=== PATIENT | female | born 1980 | race Caucasian/White ===

== ENCOUNTER 2016-11-14 20:09 | Inpatient (IN) | payer MEDICARE, MEDICAID ==
[~2016-11-14] VITALS: Ht 160 cm; Wt 90.7 kg
[~2016-11-14 20:09] MED LIST: ACYC400T2 PO; ALBU8.5H2 INHALATION; ALPR0.5T PO; BUSP15TA3 PO; BUTA1CAP39 PO; CRAN1CAP2 PO; DESO15CR25 TOP; ESOM20CA28 PO; KEN25CR EXT; KTC2C15 TP; LACT1TAB21 PO; MAGN250T29 PO; MECL-114 PO; METH-442 PO; METH20TA33 PO; SOD28CRE TP; excedrin migraine; vitamin d
[2016-11-14] MEDS ORDERED: diphenhydrAMINE 50 mg Capsule PO ONE (21:50)
--- NOTE | 2016-11-14 21:59 | PCM.ANEPRE ---
Anesthesia Pre-Op Review Reason for Review: request of supervisor front Anesthesia Recommendations: Proceed with Procedure Additional Comments 36 yo presents in early labor. Patient states she has some mild form of narcolepsy, for which she was on an amphetamine class stimulant up until pregancy. Patient has hypertension on labetalol, and depression on wellbutrin and buspirinone. Patient is extremely needle phobic, and states she has passed out frequently with blood draws. No prior surgical hx. Upon discussion with patient and family, it is obvious patient has a high degree of anxiety and would not readily tolerate IV access. Order has been written for patient to receive PO midazolam prior to IV start, after which time medications can be administered intravenously. Epidural was also discussed with patient, and she seemed agreeable to procedure. Chart Reviewed by: Carter Maddox MD Nov 14, 2016 21:58
[2016-11-14] MEDS ORDERED: Midazolam 2 mg/mL 5 mL Syrup PO ONE (22:45)
[2016-11-15] MEDS ORDERED: Sodium Chloride LOK Flush 10 mL Syringe IVFLUSH PRN (00:10)
[2016-11-15] MEDS ORDERED: Ondansetron 2 mg/mL 2 mL Inj IVPUSH PRN ×2 (00:10→01:05)
[2016-11-15] MEDS ORDERED: Carboprost 250 mCg/mL Inj IM PRN ×2 (00:10→14:55)
[2016-11-15] MEDS ORDERED: Methylergonovine 0.2 mg/mL Inj IM PRN ×2 (00:10→14:55)
[2016-11-15] MEDS ORDERED: Oxytocin 10 Unit/mL Inj IM PRN ×2 (00:10→14:55)
[2016-11-15] MEDS ORDERED: Hemorrhage Kit, Post Partum XX ONE ×2 (00:10→14:55)
[2016-11-15] MEDS: Lactated Ringer's 1,000 ML IV PRN ×2 (00:17→01:02)
[2016-11-15 00:19] LABS: Mean Corpuscular Volume 96.4 fL (81-100)
[2016-11-15] MEDS ORDERED: fentaNYL 2 mCg/mL-Bupivicaine 0.125% 100 mL Premix EPIDURAL ONE (00:20)
[2016-11-15] MEDS ORDERED: Lactated Ringer's 500 ML IV ONE (01:04)
[2016-11-15] MEDS ORDERED: EPHEDrine Sulfate 50 mg/mL Inj IVPUSH PRN (01:05)
[2016-11-15] MEDS ORDERED: Atropine 1 mg/10 mL (Code) Syringe IVPUSH PRN (01:05)
[2016-11-15] MEDS ORDERED: fentaNYL 2 mCg/mL-Bupiv 0.125% 100 ML EPIDURAL SCH (01:05)
--- NOTE | 2016-11-15 01:05 | PCM.HPANE ---
Patient Data Date of Service: Nov 15, 2016 (2300) Surgeon Admitting Provider:Nohelia Pike MD Attending Provider:Sandor Bridges MD Primary Care Physician:Idris Aburto MD Other Provider:Abdias Casey Anesthesia Reason for Visit Term Labor Check TERM LABOR CHECK Ht/WT & BMI Body Mass Index Allergies Coded Allergies: amoxicillin (Verified Allergy, Severe, 01/15/16) FAIITNG, LOW BP, CHEST PAIN clindamycin (Verified Allergy, Severe, Anaphylaxis, 01/15/16) THROAT SWELLING ciprofloxacin (Verified Allergy, Intermediate, Nausea,Vomiting, 01/15/16) N/V, DIZZINESS, TWITCHING, PALPITATIONS, FLUSHING metronidazole (Verified Allergy, Unknown, 01/15/16) fluoxetine (Verified Adverse Reaction, Intermediate, 01/15/16) LIGHT HEADEDNESS Past Anesthesia History Anesthesia History: Denies:: Abnormal Airway, Anesthesia Reactions (no prior surgery), Difficult Intubation, Fam Anesthesia Reaction, Malignant Hyperthermia Diabetes History Hx Diabetes?: No MRSA MRSA: Yes (cannot recall specifics ) Medications Reported Medications Alprazolam (Xanax)0.5 Mg Tablet0.5-1 Mg PO TID PRN For Anxiety Ref 0 01/30/16 [vitamin d] No Conflict CheckUnknown Dose DAILY 01/30/16 Triamcinolone Acet (Triamcinolone Acetonide Cream)1 Applic/0.25 Gm Cr1 Applic EXT BID #60 GM Ref 0 01/30/16 Esomeprazole Magnesium (Nexium)20 Mg Capsule.dr20 Mg PO DAILY Ref 0 01/30/16 Methylphenidate 20 Mg Nlskkd99 Mg PO QAM Ref 0 01/30/16 Meclizine (Bonine)25 Mg Tab.chew25 Mg PO PRN vertigo 01/30/16 Magnesium Oxide (Magnesium)250 Mg Oamxxe228 Mg PO DAILY 01/30/16 Ketoconazole 15 Gm Cream..g.15 Gm TP BID 01/30/16 Butalbital/Acetamin/Caff 50-300-40 mg (Fioricet 50-300-40 mg)1 Each Capsule1-2 Capsule PO Q4H PRN migraines Ref 0 NTE 6 caps/24 hrs 01/30/16 [excedrin migraine] No Conflict Nloel902 Mg PRN migraines 01/30/16 Methamphetamine HCl (Desoxyn)5 Mg Tablet5-10 Mg PO 1-2x daily 01/30/16 Desonide (Desonide Cream)15 Gm Cream..g.1 Applic TOP BID #1 TUBE Ref 0 01/30/16 Cranberry Conc/Ascorbic Acid (Cranberry 6,000 mg Softgel)1 Each Capsule1 Each PO DAILY 01/30/16 Buspirone 15 Mg Ycqdgv03 Mg PO BID Ref 0 01/30/16 Sod Lactate/Amm Lact/Pot Lact (Amlactin Ultra Body Cream)28 Gm Cream..g.28 Gm TP BID 01/30/16 Albuterol HFA (Proair HFA)8.5 Gm Hfa.aer.ad2 Puffs INHALATION Q4H PRN For Shortness of Breath #1 INHALER 01/30/16 Acyclovir 400 Mg Wyxaqa156 Mg PO TID PRN outbreak Ref 0 for 5 day cycle 01/30/16 Lactobacillus Acidophilus/Fos (Acidophilus Probiotic Tablet)500 Million Cell-50 Mg Tablet1 Each PO DAILY 01/30/16 History History of ENT Problems?: Yes HEENT History: Positive for:: Sinus Problem (sinus frequently) Denies:: Abnormal Airway Cataracts Difficult Intubation Dysphagia Hearing Problem TMJ Hx of Heart Problems?: Yes Cardiovascular History: Positive for:: Irregular Heartbeat (palpitations with anxiety, syncopal episodes) Denies:: AICD Abdominal Aortic Aneurism Atrial Fibrillation Cardiac Surgery Chest Pain Congestive Heart Failure Edema Heart Murmur Hypertension Pacemaker Hx of Respiratory Problem?: Yes Respiratory History: Positive for:: Asthma (exercise induced) Pneumonia ("thinks so") Denies:: Oxygen Administration Tuberculosis Use of C-PAP Machine Hx Neurologic Problems?: Yes Neurological History: Positive for:: Dizziness (vertigo- syncopal episodes easily in medical situations) Headaches Denies:: CVA Dementia Multiple Sclerosis Parkinson's Disease Seizures Hx of GI Problems?: No Gastrointestinal History: Denies:: Cirrhosis Diverticulitis Gastroesphageal Reflux Gastrointestinal Bleeding Heartburn Hepatitis Hiatal Hernia Rectal Bleeding Hx of Problems?: No Genitourinary History: Positive for:: Urinary Tract Infection Denies:: Kidney Stones HX of Peritoneal Dialysis: No Female Hx: Positive for:: Currently (missed current admission problem) Denies:: Problems with Breasts? Hx Musculoskeletal Problems?: No Musculoskeletal History: Denies:: Back Injury Degenerative Joint Joint Replacement Musculoskeletal Trauma Systemic Lupus Hx of Psycho/Social Problems?: Yes Psycho Social History: Positive for:: Anxiety Hx Depression Hx Surgeries?: No Other History: Denies:: Cancer Thyroid Disease History Blood Transfusions: Denies:: Blood Transfusions Hx Diabetes: No Hx Alcohol Use: YesHx Substance Use: No Smoking Status: Current Every Day Smoker Have You Smoked inLast 12 mo: Yes Stop/Bang Risk Assessment Category Category 1A: Patient has history of documented sleep apnea, and HAS NOT received any narcotic, sedative or anesthesia administration during this stay. Category 1B: Patient has history of documented sleep apnea, and HAS received any narcotic , sedative or anesthesia administration during this stay Category 2: Patient has SUSPECTED Obstructive Sleep Apnea, and HAS received any narcotic , sedative or anesthesia administration during this stay. Category 3: Patient has SUSPECTED Obstructive Sleep Apnea and HAS NOT received narcotic, sedative or anesthesia administration during this stay. Category 4: Outpatient in Procedural Areas with known sleep apnea or who screen positive for High Risk via the STOP/BANG questionnaire. Exam Exam General Appearance: Alert, Oriented X3, Cooperative, No Acute Distress HEENT/AIRWAY: MP 2 Lungs: Clear to Auscultation Heart: Exam Unremarkable Meds/Labs/Diagnostics Admission Meds Current Medications Midazolam HCl (Versed Syrup) 10 mg OT ONCE PO Last administered on 11/14/16t 23:11; Start 11/14/16 at 22:45; Stop 11/14/16 at 22:46; Status DC Labs Test 11/14/16 22:47 11/14/16 23:45 Urine Opiates Screen Negative Urine Methadone Screen Negative Urine Barbiturates Screen Negative Urine Amphetamines Screen Positive Urine Benzodiazepines Screen Negative Urine Cocaine Metabolite Screen Negative Urine Cannabinoids Screen Negative White Blood Count 21.6th/mm3 (3.8-10.1) Red Blood Count 3.84mil/mm3 (3.90-5.20) Hemoglobin 12.3g/dL (12.0-15.6) Hematocrit 37.0% (35.0-46.0) Mean Corpuscular Volume 96.4fL (81-100) Mean Corpuscular Hemoglobin 32.0pg (27.0-35.0) Mean Corpuscular Hemoglobin Concent 33.2% (32.0-37.0) Red Cell Distribution Width 13.6% (12.3-15.4) Platelet Count 204bil/L (150-400) Hold Purple Top Tube Received (Received) Plan Impression Patient chart reviewed, patient interviewed and anesthestic plan with risks, benefits, and alternatives discussed, and informed consent obtained. ASA Physical Status: ASA3 Severe Disease (severe anxiety) Anesthetic Plan: Epidural Bene/Risks/Altern/Consents: Yes HP Complete Prior to Induction: Yes Carter Nunes MD Nov 15, 2016 01:04
[2016-11-15] MEDS ORDERED: EPHEDrine/NS 5 mg/mL 5 mL Syringe ONE (01:26)
[2016-11-15] MEDS ORDERED: Acetaminophen IV 1,000 MG in IV Premix 1 EACH IV PRN (02:20)
--- NOTE | 2016-11-15 06:26 | HP ---
[address] [address] HISTORY AND PHYSICAL PATIENT: MARIO TEJEDA : 1980 MR#: [id number] ADMIT: 11/14/2016 JOB ID: [id number] ADMISSION DIAGNOSIS: Spontaneous rupture of membranes at term. HISTORY OF PRESENT ILLNESS: The patient is a 36-year-old, 2, para 0-0-1-0, at 38 weeks and 2 days gestational age by LMP, confirmed by 9 week ultrasound. Started to have leakage of fluid while she was in triage for labor check, and ROM+ test was positive. Admitted for spontaneous rupture of membranes. Had her complicated with the followin. 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 She has to take amphetamines to stay awake. The patient and partner denied any amphetamine use in the last few months, but UDS was positive for amphetamine on admission. 2. History of herpes simplex virus infection. She is not on prophylaxis. The patient mentioned she had an active lesion 20 years ago and got treated, and she takes prophylaxis whenever her partner has cold sores. Sterile speculum exam on admission showed no lesions on the perineum or on the vagina and cervix. 3. Anxiety disorder with panic attacks. She is on Wellbutrin and risperidone. 4. Chronic hypertension. On labetalol 100 mg q.12 h., with controlled blood pressures. 5. Suspected LGA. Last ultrasound on November 10, 2016, showed baby at 97th percentile with estimated weight of 3948 g. 6. Marginal placental cord insertion. Ultrasound on November 10 showed anterior placenta. Nothing was mentioned about the cord insertion. 7. Cardiogenic syncope, per patient. She mentioned that she gets syncope with needle sticks or eyedrops, or multiple stimulants. 8. Cigarette smoking. PAST MEDICAL HISTORY: See the list above. PAST SURGICAL HISTORY: Colposcopy for abnormal Pap smear. This was her only surgery, per patient. PAST GYNECOLOGIC HISTORY: History of HSV and history of normal Pap smears. Last Pap was normal, per patient. MEDICATIONS: Wellbutrin, risperidone, vitamins, labetalol. OBSTETRICAL HISTORY: Prior spontaneous , and the current . ALLERGIES: AMOXICILLIN, CIPROFLOXACIN, , METRONIDAZOLE, FLUOXETINE, CLINDAMYCIN. SOCIAL HISTORY: Used amphetamines for hypersomnia. Cigarette smoking. LABORATORIES: A-positive. Antibody negative, rubella immune, varicella immune, serology nonreactive, hepatitis B surface antigen negative. HIV nonreactive. Urine cultures negative. GC and chlamydia cultures negative. GBS culture is negative. UDS positive for amphetamines on admission. PHYSICAL EXAMINATION: The patient is alert, oriented x3. Vital signs are 117/72 for blood pressure. Respirations are 20, pulse is 94. Heart is regular rate and rhythm. Positive S1, S2. Lungs: Clear to auscultation bilaterally. Abdomen: Gravid uterus. Lower extremities: No calf tenderness appreciated bilaterally. Sterile speculum exam showed no herpetic lesions on the cervix or the vaginal hillman. Careful inspection of the vulva revealed no lesions on the perineum. Cervical exam is 4 cm dilated, cervix 80% effaced, -3 station, vertex presentation with bulging membranes. heart tracing is showing baseline of 130 beats per minute, positive accelerations, no decelerations, moderate variability, category 1 heart tracing. ASSESSMENT AND PLAN: The patient is a 36-year-old, 2, para 0-0-1-0, at 38 weeks and 2 days gestational age by last menstrual period, confirmed by 9 week ultrasound, admitted for spontaneous rupture of membranes. Discussed the labor with the patient ; she opted for expectant management. She would prefer Dr. Aburto to deliver her. 2. Group B Strep cultures negative. 3. Discussed intrapartum analgesia. Would like epidural for pain control. Anesthesia notified. 4. Category 1 heart tracing. 5- Patient was given Versed by anesthesiologist to tolerate IV access, as she has history of cardiogenic syncope with needles. The patient agreed. CARTER
[2016-11-15] MEDS ORDERED: Sodium Chloride LOK Flush 10 mL Syringe IVFLUSH SCH (08:30)
[2016-11-15] MEDS: Lactated Ringer's 1,000 ML IV SCH ×3 (08:36→12:01)
[2016-11-15] MEDS: Oxytocin 30 Units/500 mL LR 30 UNITS in IV Premix 1 EACH IV PRN ×2 (08:36→16:55)
[2016-11-15] MEDS ORDERED: Lactated Ringer's 1,000 ML IV SCH (14:53)
[2016-11-15] MEDS ORDERED: Benzocaine (Dermoplast) 20% 60 Gm Spray TOPICAL PRN (14:55)
[2016-11-15] MEDS ORDERED: oxyCODONE-Acetamin 5-325 mg Tablet PO PRN (14:55)
[2016-11-15] MEDS ORDERED: Witch Hazel-Glycerin Pads TOPICAL PRN (14:55)
[2016-11-15] MEDS ORDERED: LANOlin HPA 7 Gm Ointment TOPICAL PRN (14:55)
[2016-11-15] MEDS ORDERED: Oxytocin 30 Units/500 mL LR 30 UNITS in IV Premix 1 EACH IV PRN (14:55)
[2016-11-15] MEDS ORDERED: GENTAMICIN IV ONE (15:05)
[2016-11-15] MEDS ORDERED: SODIUM CHLORIDE 0.9% IV ONE (15:05)
[2016-11-15] MEDS ORDERED: metroNIDAZOLE Inj 500 MG in IV Premix 1 EACH IV ONE (15:05)
[2016-11-15] MEDS ORDERED: diphenhydrAMINE 50 mg Capsule PO PRN (17:25)
[2016-11-15] MEDS ORDERED: ALPRAZolam 0.5 mg Tablet PO ONE (17:25)
--- NOTE | 2016-11-15 17:35 | NUR ---
Family Assessment Denise Danielle delivered baby jackelyn Danielle on 11/15/15. FOB is listed as Omar Alarcon. SW was consulted due to amphetamine use during and [facility]. ROD states that she has a neurologic disorder that is known as sleeping beauty syndrome - an extreme form of narcolepsy which keeps her sleeping much of the day or night without medications. She states that she has been seeing neurologist at and was prescribed amphetamines to help her stay awake during the day. records show that her YOUTH CARE PROFESSIONAL had her stop taking her amphetamines during . Pt admits to buying/using amphetamines from friends during her . Pt's Significant other is Omar - Omar was very upset with RN last night when RN identified that a UDS and Cord blood would be tested for drug use. He stated to RN that if drug testing was brought up again, he would follow the RN to the parking lot and he would use a gun. RN reported to Security and Risk and DESIREE - Omar was asked to leave the hospital for threatening a staff member and will not be allowed to return. PUMP HOUSE TECHNICIAN met with pt alone to explore home situation. Current living situation: Parents live in [place]. This is their first child. ROD is on disability for her narcolepsy and anxiety. FRANKIE is her KAR caregiver - paid by [facility] to be a chore provider - about 48 hours a month. Substance Abuse: ROD denies any drug or alcohol use except what is prescribed by her doctor - She admits to taking benzos and amphetamines "infrequently" during her when her sleep and anxiety became overwhelming. Mental Health: Pt states that she has struggled with severe anxiety since she was a teenager. She denies any inpt psychiatric hospitalizations. She reports that she is open with [facility] for counseling and medication management. She was very anxious during delivery and with PUMP HOUSE TECHNICIAN interview. She states that she just wants to go home - but was able to be redirected as she is not medically stable for d/c today. She is aware of PPD - Denies any current depression but will use her MD and Counselor if depression is an issue in the future. Source of Income: Pt is on Medical Disability. She is open with [facility] for assistance. DV: ROD denies any hx of DV issues. She states she has a very supportive relationship with Omar and that he has never hurt her. She states she is safe to return home with Omar. Supports: MOB has family and friends who are willing to provide support. Maternal Grandfather is at the hospital and is willing to help. Assessment: who has known unprescribed amphetamine and benzodiazepine use during her - CPS referral started. FOB with anger/threatening behavior to hospital staff who has been trespassed off of the premises and will not be allowed to return to visit. Yancy from Risk Management is involved. Security is aware. Plan: Follow up with CPS for disposition of baby after CPS interview. KAITLYN Olivas
--- NOTE | 2016-11-15 18:09 | NUR ---
WELT TRIMMING MACHINE OPERATOR filed CPS report with Wisam Keyes. ANDRZEJ OlivasSW
--- NOTE | 2016-11-15 21:10 | PROG NOTE ---
[address] [address] PROGRESS NOTE PATIENT: MARIO TEJEDA : 1980 MR#: [id number] ADMIT: 11/14/2016 JOB ID: [id number] DATE: 11/15/2016 DICTATION TIME: 4:46. This is a patient who delivered by Dr. Daley this afternoon. Patient request Dr Daley present for her for morning round and delivery because she claimed she only trust him for the delivery. She had hemorrhage immediate after delivery which was about [address] Daley gave me a sign out after delivery that the patient was stable. The bleeding has stopped after getting Pitocin, Cytotec and Hemabate. I was called by the floor that the in the afternoon that patient has bleeding again. Patient and her family refused to have a Herrera catheter placed, which is needed control her bleeding. After I got the phone call, I discussed with Dr. Daley of this patient. Dr Daley was in the middle of an offic eprocedure. I walked to the floor immediately. When I arrived at the room,patient had her Herrera catheter in already and the urine was draining and itdrained about 700 cc. Her vital signs were stable at that time. Her blood pressure is in normalrange. Her pulse was about 80s to 90s. Her uterus was firm at this time. There was no active bleeding from vaginal noticed at this time. During evaluation, Dr. Daley also arrived. ASSESSMENT AND PLAN: This is a 36-year-old female, para 1, just delivered with hemorrhage. Vaginal bleeding controlled. Stable condition. Chorioamionitis, but no fever after delivery. On antibiotics. Patient has history of anxiety, not cooperating well, during and delivery. But calm at this time. She could listen to explaination and understood well. PLAN: 1. At this time, we will continue with antibiotics for chorio. 2. Give another bag of Pitocin to help for the contraction of the uterus. 3. At this time, the vitals stable. There is no continuous heavy bleeding. My estimation of the whole blood loss is less than 1000 mL, although I do not know the exact amount of bleeding. Patient has history of anxiety but she is not on any anti-anxiety medication during . At this time, I will not put her anti-anxiety medication. Will order CBC in the morning unless there is more bleeding. MTDD
--- NOTE | 2016-11-16 01:31 | OP ---
[address] [address] OPERATIVE REPORT PATIENT: MARIO TEJEDA : 1980 MR#: [id number] ADMIT: 11/14/2016 JOB ID: [id number] DATE OF SURGERY: 11/15/2016 SURGEON: PREOPERATIVE DIAGNOSIS(ES): 1. A 36-year-old, 1, para 0, at 38 weeks and two days in active labor, suspected macrosomia. 2. History of -induced hypertension. POSTOPERATIVE DIAGNOSIS(ES): 1. A 36-year-old, 1, para 1, status post spontaneous vaginal delivery at term. 2. hemorrhage. 3. endometritis. 4. History of -induced hypertension. DELIVERY NOTE: The patient is a 36-year-old, 1, para 1 now, who came to labor and delivery in the evening of November 14, 2016, complaining of regular contractions. She has been destiney every 3-4 minutes. On exam she was 4 cm dilated, 80% effaced, -2 station. The patient was admitted for delivery. She received an epidural. She was examined at 5:30 a.m. and was 6 cm dilated, 100% effaced, 0 station. Following exam at 8 a.m. showed cervical dilation 8-9 cm, 100% effacement, 0 station. Mild meconium. Braided Rug Maker was notified. Intrauterine pressure catheter was placed and augmentation with Pitocin was started. Patient stated that she had spontaneous rupture of membranes at admission and initial testing was positive, however, when I ruptured membranes there was a forebag filled with fluid with meconium. She progressed to full dilation at 12:07 p.m., pushed for one hour, progressed to station +2, was bearing down for one hour and started pushing again. heart rate tracing was reactive, category 1. At the end of second stage of labor there was intermittent increase in heart rate to 170 beats per minute. Variability was good. No decelerations. The patient underwent spontaneous vaginal delivery at 2:28 p.m., delivered male with Apgars 7 at one minute and 7 at five minutes, weight 3862 g. Braided Rug Maker was present at delivery. Immediately upon delivery the cord was clamped and cut and the infant was handed off to the waiting training mgr. The cord blood was sent. At that time, measured temperature was 37.9. The patient had moderate hemorrhage that was controlled with injection of 250 mg of Hemabate IM and placement of 800 mcg of Cytotec rectally. With uterine massage bleeding subsided. She had second-degree midline vaginal laceration that was repaired with 3-0 Vicryl. The placenta was delivered at 2:36 p.m. and was found to be intact with three-vessel cord. Estimated blood loss was 600 mL. At the end of delivery, this patient's temperature was rechecked, it was 38.6, and antibiotics were started for endometritis, including gentamicin and clindamycin.
--- NOTE | 2016-11-16 10:30 | NUR ---
CPS came into patient's room. Pt. told CPS to leave and stated, "I don't have to talk to them. It is none of their business. I am going home." Pt. got dressed and packed her things. Nurse encouraged her to stay and asked her not to leave her baby. "I am taking the baby with me. I can give it oxygen at home". Pt's friend, Charles, able to talk to patient and convince her to stay. Pt. encouraged to go see baby. CPS talked to pt's mother and will return at another time. Pt. taken to nursery to see her baby. Nurse explained reason for CPS's visit due to positive amphetamines on urine drug screen. Pt states she has proof that the welbutrin and labetolol she was taking in will show up in a drugs screen as amphetamines. She denies taking Desoxyn 2 days ago as documented in admission record. Nurse explained another reason for CPS visit was her her sleep disorder, and CPS needed to evaluate this for baby's safety. Pt. reminded that she told the nurse yesterday that sometimes she is hard to wake up, but that her significant other,Omar, will be with her to help her take care of the baby. Pt. reminded that Omar had threated a nurse, that he will meet that nurse out in the parking lot one night, and that this added another concern to CPS. Also explained to pt, CPS was very concerned that she wants to take her baby home while still requiring oxygen. Pt. calmer now and states she will stay and not take the baby.
--- NOTE | 2016-11-16 10:56 | NUR ---
Social Work Note: CPS D/A: ASHLEY met with Yady Balderas from CPS who reported that the primary CPS worker assigned to Pt's case is Jenelle Stearns. Yady requested that Pt's records be faxed to her at [phone] for review prior to an FTDM that would be scheduled. P: ASHLEY faxed the requested clinical information to Yady Balderas. ASHLEY Benites, AAC
--- NOTE | 2016-11-16 11:35 | NUR ---
CPS returned and presented Child Custody Transfer papers to the patient. Pt. very upset. Staff attempted to calm her and encourage her to stay, also to take her saline lock out. However, patient left hospital AMA at 1135.
[2016-11-16] MEDS ORDERED: Bupivacaine-MPF 0.25% 30 mL Inj ONE (11:42)
[2016-11-16] MEDS ORDERED: Carboprost 250 mCg/mL Inj IM ONE (11:42)
--- NOTE | 2016-11-16 12:21 | PROG NOTE ---
[address] [address] PROGRESS NOTE PATIENT: MARIO TEJEDA : 1980 MR#: [id number] ADMIT: 11/14/2016 JOB ID: [id number] DATE: 11/16/2016 PROGRESS NOTE: This is a 36-year-old female. She is para 1 , PPD1 after vaginal delivery with hemorrhage. For detailed history, see the admission note and yesterday's progress note. This morning, I saw the patient. She is doing well. She does not have dizziness, lightheaded. She does not have severe abdominal pain. She does not have other complaints. She still has her Herrera catheter in and has appropriate urine output. PHYSICAL EXAMINATION: Cardiac: No murmur. Pulmonary: Clear. Abdomen is soft. Uterus: Uterine fundal height one finger below her umbilicus with slight tender. Extremities nontender. lochia, moderate. ASSESSMENT AND PLAN: This is a 36-year-old female, para 1, day one after a normal vaginal delivery and hemorrhage, estimated 1000ml. No concerning bleeding overnight. 1. She had mild tachycardia. Her heart rate between 90-110. Her blood pressure in normal range, but she does have normal urine output. Discussed with patient that we would like to have an CBC drawn to evaluate her H and H. she understands the reason very well. She declined it. She claimed that the only way for her to to get blood drawn is to let her stay in the room and hold her hand. We could not let her come in for the reason that he threatened staff yesterday. 2. We also want to get a CBC drawn to watch her white count which was 21 on at admission, and she was diagnosed with chorioamnionitis and got one dose of antibiotics after delivery. She has been afebrile. The tenderness is not severe on her uterus, but the white count will be very important for us to have us evaluate her infection status. Patient understands and still declined for this test for this reason. 3. Because the patient declined the test at this time, what I coulddo is to monitor her vaginal bleeding by pad count and monitor her vitals and signs of severe anemia and will monitor her temperature and uterine tenderness to decide whether her infection is becoming better. I will need her stay in hospital for one more day for observation. 4. Because of patient is positive of urine amphetamines, will need continue working with the social media marketing specialist. Her nurse and resident were both in the room when I talk with her and examined her . We all believe she understood well. She was talking with us in calm mood. CARTER
--- NOTE | 2016-11-16 12:36 | PCM.PNOBPP ---
Subjective Date of Service Nov 16, 2016 Post : Spontaneous Vaginal Delivery Visit History Per Dr. Pike's Admit History. The patient is a 36-year-old, 2, para 0-0-1-0, at 38 weeks and 2 days gestational age by LMP, confirmed by 9 week ultrasound. Started to have leakage of fluid while she was in triage for labor check, test was positive. Admitted for spontaneous rupture of membranes. Had her complicated with the followin. 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 She has to take amphetamines to stay awake. The patient and partner denied any amphetamine use in the last few months, but UDS was positive for amphetamine on admission. 2. History of herpes simplex virus infection. She is not on prophylaxis. The patient mentioned she had an active lesion 20 years ago and got treated, and she takes prophylaxis whenever her partner has cold sores. Sterile speculum exam on admission showed no lesions on the perineum or on the vagina and cervix. 3. Anxiety disorder with panic attacks. She is on Wellbutrin and risperidone. 4. Chronic hypertension. On labetalol 100 mg q.12 h., with controlled blood pressures. 5. Suspected LGA. Last ultrasound on November 10, 2016, showed baby at 97th percentile with estimated weight of 3948 g. 6. Marginal placental cord insertion. Ultrasound on November 10 showed anterior placenta. Nothing was mentioned about the cord insertion. 7. Cardiogenic syncope, per patient. She mentioned that she gets syncope with needle sticks or eyedrops, or multiple stimulants. 8. Cigarette smoking. Per Dr. Aburto's delivery note: Patient stated that she had spontaneous rupture of membranes at admission and initial testing was positive, however, when Dr. Aburto ruptured membranes there was a forebag filled with fluid with meconium. She progressed to full dilation at 12:07 p.m., pushed for one hour, progressed to station +2, was bearing down for one hour and started pushing again. heart rate tracing was reactive, category 1. At the end of second stage of labor there was intermittent increase in heart rate to 170 beats per minute. Variability was good. No decelerations. The patient underwent spontaneous vaginal delivery at 2:28 p.m., delivered male with Apgars 7 at one minute and 7 at five minutes, weight 3862 g. Backend Java Developer was present at delivery. Immediately upon delivery the cord was clamped and cut and the infant was handed off to the waiting steel hanger. The cord blood was sent. At that time, measured temperature was 37.9. The patient had moderate hemorrhage that was controlled with injection of 250 mg of Hemabate IM and placement of 800 mcg of Cytotec rectally. With uterine massage bleeding subsided. She had second-degree midline vaginal laceration that was repaired with 3-0 Vicryl. The placenta was delivered at 2:36 p.m. and was found to be intact with three-vessel cord. Estimated blood loss was 600 mL. At the end of delivery, this patient's temperature was rechecked, it was 38.6, and antibiotics were started for endometritis, including gentamicin and clindamycin. Subjective This AM she claims to be in pain, mainly in her hips, abdomen and groin. She Gilberto any CP, Shortness of breath, or lightheadedness. She has refused lab blood draws. She says she is going through numerous pads, soaking through, and has been leaking onto the bedding and sheets. She had flatus this morning. Has not been able to ambulate. Has Herrera Catheter in place and draining yellow clear fluid. UDS was taken this AM and was once again positive for amphetamines. Lochia: Heavy Pain Management: PO pain meds Gastrointestinal: No N/V, Passing Flatus Postop Activity: Other (Herrera in, not ambulating.) Group B Strep Results: Negative Rubella: Immune Blood Type: A RH Type: Positive Labs Laboratory Tests 11/14/16 23:45: White Blood Count 21.6, Red Blood Count 3.84, Hemoglobin 12.3, Hematocrit 37.0, Mean Corpuscular Volume 96.4, Mean Corpuscular Hemoglobin 32.0, Mean Corpuscular Hemoglobin Concent 33.2, Red Cell Distribution Width 13.6, Platelet Count 204, Hold Purple Top Tube Received Exam Vital Signs Vital Signs 121/78 107 18 36.8C Vital Signs: VS reviewed, concerns are (tachycardia) Exam Abdomen: Fundus firm, Abdomen soft, Abdomen appropriately tender : Herrera catheter Extremities: No cords, No tenderness/swelling Lungs: Clear to Auscultation Heart: Normal S1, Normal S2, No Murmurs/Rubs/Gallops, Other (Tachycardic) General: Alert, Oriented X3, Mild Distress OB Post Assessment/Plan Assessment 36 Women Post day 1, PPH 600ml EBL, continuing to have heavy lochia and tachycardia. Intrapartum fever, and positive UDS for amphetamines. Concern for anemia Chorioamnionitis Unstable social situation Pt has declined blood draw to evaluate for infection and anemia. She was offered to have it performed by nursing staff, labratory staff, and by physicians. The need for the blood test was explained to her by Dr. Bernal, the Nursing staff, and myself. She was able to explain back to us her understanding of why we are requesting her blood to evaluate for anemia and infection. She then stated she would allow us to attempt to get blood if the FOB was allowed back into the hospital to hold her hand. Problems: (1) hemorrhage Status: Acute ICD Code: O72.1 (2) SROM (spontaneous rupture of membranes) Status: Acute (3) Term delivered Status: Acute ICD Code: O80 Pain Management: Oral Analgesics Pain Evaluation: Adequate Pain Control Post plan: Continue routine post care Plan: Re-attempt to get permission to have blood drawn Monitor for fever, worsening abd tenderness, distension. DC Herrera Oral Pain analgesics LINSEED OIL ORDER FILLER has notified CPS of case. Attending Statement I saw patient and examined her. Agree with above evaluation. I explained to patient of the concern and plan.Patient understood well but refused blood drawn. Declan Padgett DO Nov 16, 2016 09:38 Ashley Bernal MD Dec 06, 2016 19:42
--- NOTE | 2016-11-16 16:30 | NUR ---
Pt. returned to see baby in SCN. Saline lock removed.
--- NOTE | 2016-12-03 04:15 | DIS ---
[address] [address] DISCHARGE SUMMARY PATIENT: MARIO TEJEDA : 1980 MR#: [id number] ADMIT: 11/14/2016 JOB ID: [id number] DIS: 11/16/2016 HOSPITAL COURSE: This is a 36-year-old female. She is 1, para 1 now. She was admitted to [facility] for labor. This patient was delivered by Dr. Aburto. She had a normal vaginal delivery but she experienced hemorrhage immediately after delivery. It was estimated at 600 cc. There was another episode of vaginal bleeding after delivery. The total bleeding was estimated 1000 mL. This was a rough estimation because of difficulty to evaluate amount of bleeding for the second episode. The patient also experienced a fever around delivery and it was suspected as chorioamnionitis. One dose of antibiotic was given after delivery. After delivery, when she had second episode of bleeding, a Herrera catheter was inserted at that time, and overnight the urine output was adequate. Patient was doing well overnight. On day one, that is November 16, in the morning during the rounds, the patient was not lightheaded, no dizziness, and her vitals stable. She was afebrile. There was very mild tender on her uterus. Her lochia was moderate to minimal at that time. A CBC was ordered for the morning. The reason was to check the blood count to evaluate anemia and to check her white count to evaluate situation of chorioamnionitis. Patient declined to have blood drawn. After extensive discussion and explanation, she understood very well, but still declined blood draw. At that time, the plan was made that we will monitor patient's vitals, including her pulse, blood pressure, temperature, and at same time we will closely monitor her lochia by pad count, and will also monitor her symptoms of abdominal pain and physical examination to see whether any continuous uterine tenderness, to evaluate her anemia, and any signs of infection. Patient agreed with the plan in the morning and she understood that most likely she will have to stay in the hospital until the next morning. Later, at around noontime, patient decided to leave the hospital against medical advice. I was informed that the patient left the hospital. I did not have a chance to evaluate or talk with her again before she left. CARTER
== END 2016-11-16 11:43 | disposition home or self-care (01) | DRG 774 ==
LOC: FBCO 20:09 → FBC 22:25
PROVIDERS: ADMIT Obstetrics & Gynecology; ATTEND Obstetrics & Gynecology
PROC: 10E0XZZ Delivery of Products of Conception, External Approach (ICD-10-PCS; principal; 2016-11-15)
PROC: 0KQM0ZZ Repair Perineum Muscle, Open Approach (ICD-10-PCS; 2016-11-15)
DX: O13.3 Gestational [pregnancy-induced] hypertension without significant proteinuria, third trimester (principal); O72.2 Delayed and secondary postpartum hemorrhage; O41.1230 Chorioamnionitis, third trimester, not applicable or unspecified; O99.324 Drug use complicating childbirth; O71.4 Obstetric high vaginal laceration alone; Z37.0 Single live birth; O99.334 Smoking (tobacco) complicating childbirth; O75.89 Other specified complications of labor and delivery; F17.210 Nicotine dependence, cigarettes, uncomplicated; F41.0 Panic disorder [episodic paroxysmal anxiety]; Z3A.38 38 weeks gestation of pregnancy; G47.10 Hypersomnia, unspecified; F51.9 Sleep disorder not due to a substance or known physiological condition, unspecified; O09.523 Supervision of elderly multigravida, third trimester; F15.90 Other stimulant use, unspecified, uncomplicated; O77.0 Labor and delivery complicated by meconium in amniotic fluid

== ENCOUNTER 2016-12-06 16:29 | Observation (INO) | payer MEDICARE, MEDICAID ==
[~2016-12-06] VITALS: Ht 160 cm; Wt 86.4 kg
[2016-12-06] VITALS (12 sets, daily range): BP systolic 92–119; BP diastolic 54–76; PULSE 86–106; RESP 13–24; O2SAT 98–100
[~2016-12-06 16:29] MED LIST changes: +Dexamethasone 4 mg/mL Inj ONE; +MetoCLOpramide 5 mg/mL 2 mL Inj ONE; +Oxytocin 10 Unit/mL Inj ONE; +Phenylephrine/NS 100 mCg/mL 10 mL Syringe IVPUSH ONE; +Propofol 10,000 mCg/mL 20 mL Inj ONE; +Rocuronium 10 mg/mL 5 mL Inj ONE; +Succinylcholine Chloride 20 mg/mL 5 mL Inj ONE; +fentaNYL-PF 50 mCg/mL 2 mL Inj ONE
--- NOTE | 2016-12-06 16:33 | ED.REPORT ---
HPI-General Illness Date of Service Dec 06, 2016 ED Provider: MD Falguni This is a 36 year old female who is 2 weeks post- presenting to the emergency department via EMS due to vaginal bleeding that began just prior to arrival. Pt was using the restroom when the vaginal bleeding began which was described as blood gushing. Pt brought herself down to the floor, she did not lose consciousness. When medics arrived pt was minimally responsive and could not get up. There was "blood everywhere" but she soon arose spontaneously without fluids. Pt seen at urgent are 3 days ago due to a fever of 103F, she was diagnosed with bladder infection and started on a three-day course of Septra. Nursing Notes Stated Complaint: POST- BLEED Nursing Notes Reviewed: Yes Allergies: Coded Allergies: amoxicillin (Verified Allergy, Severe, 01/15/16) FAIITNG, LOW BP, CHEST PAIN clindamycin (Verified Allergy, Severe, Anaphylaxis, 01/15/16) THROAT SWELLING ciprofloxacin (Verified Allergy, Intermediate, Nausea,Vomiting, 01/15/16) N/V, DIZZINESS, TWITCHING, PALPITATIONS, FLUSHING metronidazole (Verified Allergy, Unknown, 01/15/16) fluoxetine (Verified Adverse Reaction, Intermediate, 01/15/16) LIGHT HEADEDNESS Scheduled Buspirone (Buspirone) 15 Mg Tablet 15 MG PO 1-2X/DAY [id number]/Iron Fumarate/FA/Dss ( 19 Tablet) 1 Each Tablet 1 EACH PO DAILY Scheduled PRN Acyclovir (Acyclovir) 400 Mg Tablet 400 MG PO TID PRN PRN HERPES OUTBREAK for 5 day cycle Albuterol HFA (Proair HFA) 8.5 Gm Hfa.aer.ad 2 PUFFS INHALATION Q4H PRN PRN For Shortness of Breath Aspirin/Acetaminophen/Caffeine (Amrnrjt-Pyqyzhehvylur-Cytr Tab) 250 Mg-250 Mg- 65 Mg Tablet 1-2 EACH PO QID PRN PRN MIGRAINE Metoclopramide (Metoclopramide) 10 Mg Tablet 5-10 MG PO QID PRN PRN Naproxen (Naproxen) 375 Mg Tablet 375 MG PO BID PRN PRN For Pain General Time Seen by MD: 16:32 Chief Complaint Other Hx Obtained From: Patient, EMS Arrived By: Ambulance Sudden in Onset?: Yes Onset Occurred: Just prior to arrival Symptom Duration: Since onset Severity: Current: Mild Pertinent Negative: Pt denies other symptoms Recent Healthcare: No recent hospitalization Similar Sx Previous: No Past Medical History Past Medical History Dissociative disorder Anxiety Chronic neck and back pain Pyelonephritis Psoriasis Hypersomnia Reports: Hypertension Reports: Migraines Past Surgical History None reported Smoking History Current Every Day Smoker Ambulatory Status Independent Review of Systems last meal: hand full of peanuts at about 2pm today Full Review of Systems Constitutional: Denies: Chills, Fever GI: Denies: Abdominal pain, Diarrhea, Nausea, Vomiting Female: Reports: Vaginal bleeding - abnl, Denies: Dysuria Neurologic: Reports: Dizziness Complete sys rev & neg: except as marked. Physical Exam Vital Signs Vital Signs Date Time Temp Pulse Resp B/P Pulse Ox O2 Delivery O2 Flow Rate FiO2 12/06/16 19:01 99 16 92/54 99 Room Air 12/06/16 17:38 36.5 97 16 100/59 100 Room Air 12/06/16 17:22 91 13 101/62 100 Room Air 12/06/16 16:30 36.8 96 15 100/64 100 Room Air - Initial VS: Reviewed Head / Eyes: Atraumatic, Normocephalic, PERRL ENT: Mucous membranes moist, Conjunctiva normal, No scleral icterus Neck: Supple, Non-tender, Full range of motion Respiratory: Breath sounds normal, Clear to auscultation, No respiratory distress Cardiovascular: Regular rate & rhythm, Heart sounds normal, Intact distal pulses Extremities: Vascular intact, Neuro intact, No swelling, No tenderness Neurologic: Alert, Oriented, Nonfocal Psychiatric: Mood/affect normal, Behavior normal, Normal thought content General/Constitutional: Awake Appearance / Presentation: Positive: Pale Able to speak full sentences Skin: Warm Perfused all over but also diaphoretic Female Genitourinary: Marketing Regional Consultant present 12 x 18 size uterus with cervical motion tenderness, some thin blood present with some clots, cervix 1 cm. Uterus is not boggy and is clamped down. Interpretation & Diagnostics Lab Results Interpretation Result Diagram: 12/06/16 1844 12/06/16 1636 Test 12/06/16 16:36 12/06/16 16:50 12/06/16 18:44 White Blood Count 16.0th/mm3 (3.8-10.1) Red Blood Count 2.79mil/mm3 (3.90-5.20) Mean Corpuscular Volume 94.6fL (81-100) Mean Corpuscular Hemoglobin 30.1pg (27.0-35.0) Mean Corpuscular Hemoglobin Concent 31.8% (32.0-37.0) Red Cell Distribution Width 14.1% (12.3-15.4) Platelet Count 595bil/L (150-400) Neutrophils (%) (Auto) 71.1% (40-74) Lymphocytes (%) (Auto) 20.8% (14-46) Monocytes (%) (Auto) 6.7% (4-12) Eosinophils (%) (Auto) 0.5% (0-5) Basophils (%) (Auto) 0.2% (0-3) Hold Purple Top Tube Received (Received) Hold Blue Top Tube Received (Received) Sodium Level 135mEq/L (134-144) Potassium Level 3.9mEq/L (3.5-5.2) Chloride Level 98mEq/L (97-108) Carbon Dioxide Level 22mmol/L (18-29) Blood Urea Nitrogen 15mg/dL (6-20) Creatinine 0.69mg/dL (0.57-1.00) Estimat Glomerular Filtration Rate 138mL/min (>59) Glucose Level 107mg/dL (60-99) Calcium Level 8.6mg/dL (8.5-10.1) Total Bilirubin 0.2mg/dL (0.0-1.2) Aspartate Amino Transf (AST/SGOT) 17U/L (0-50) Alanine Aminotransferase (ALT/SGPT) 15U/L (0-32) Alkaline Phosphatase 100U/L (25-150) Total Protein 6.8g/dL (6.4-8.4) Albumin 3.7g/dL (3.4-5.0) Hold Red Top Tube Received (Received) Hold Ottertail Top Tube Received (Received) Lactic Acid Level 2.3mmol/L (0.4-2.0) Hemoglobin 6.4g/dL (12.0-15.6) Hematocrit 20.9% (35.0-46.0) Lab Results Interpretation: US: + retained products on pelvic u/s Re-Eval/Medical Decision Med Decision/Clinical Course Presents after near syncopal collapse secondary to large hemorrhage. Ultrasound eventually reveals retained products of conception. With 3 L fluid resuscitation she is feeling better however hematocrit is decreased from 26.4 down to 20.9. Likely need to go to the operating room this evening. The interest of safety as she is still tachycardic and mildly hypotensive we will transfuse with 2 units of packed red blood cells. All of this is reviewed with her. She has significant anxiety and there were some issues regarding her allowing appropriate medical treatment when in the hospital for her delivery. Megan IV in place many of these issues are easier. Have discussed with her the need for D&C the likelihood of going to the operating room tonight the need for blood products and the need for allowing us to provide appropriate medical care and have clearly reviewed the consequences of not following those recommendations including lites threatening and life ending hemorrhage. Time of Eval: 18:48 Patient Status: Condition improved Re-Evaluation/Progress Note: Color much better. Minimal pain. Blood pressure 105/56. Heart rate 105 sinus. Moderate lochia type vaginal bleeding only. H&H has been repeated. Discussed process findings and concerns. Told her that I would be discussing her case with the SEISMIC PLOTTER and D&C was a possibility for retained products this evening. She is breast-feeding will need help with a breast pump within the next hour or 2 Consultation : Call Returned at: 19:43 Hiv/Aids Care Nurse: Will see patient Note: Spoke with Dr Bernal. She did request to unit packed red cells to be transfused prior to arrival. Somewhat concerning the patient will be reluctant to follow recommendations. Will be into the emergency department to evaluate Counseled Regarding: Diagnosis, Lab results, Need for follow-up Discharge & Departure Primary Impression: hemorrhage Additional Impression: Retained products of conception Disposition: ADMITTED TO HOSPITAL Discharge Condition All VS Reviewed: Yes Condition: Stable Referrals: Idris Aburto MD (PCP) Crit Care Except Billable Proc Time Spent: 30-74 minutes Services Performed: Patient management by me, Time spent at bedside, Reviewing test results, Reviewing imaging, Discussing patient care, Documentation in record, Time with fam/surrogate Scribe Attestation Portions of this note were transcribed by Riley Day. I, Dr. Montes De Oca personally performed the history, physical exam and medical decision-making; I reviewed and confirmed the accuracy of the information in the transcribed note. Signed by: gerardo Isaacs. 12/06/2016, 18:00. copies to: Idris Aburto MD, Shawna L MD Dec 06, 2016 16:33 RILEY DAY Dec 06, 2016 16:40
[2016-12-06 16:54] LABS: BASOPHILS % (AUTO) 0.2 % (0-3); EOSINOPHILS % (AUTO) 0.5 % (0-5); MONOCYTES % (AUTO) 6.7 % (4-12); Mean Corpuscular Hemoglobin 30.1 pg (27.0-35.0); Mean Corpuscular Volume 94.6 fL (81-100); NEUTROPHILS % (AUTO) 71.1 % (40-74); Platelet Count 595 bil/L (150-400)
[2016-12-06] MEDS ORDERED: Doxycycline Inj 100 MG in Dextrose 5% Minibag Plus 100 ML IV ONE (16:55)
--- NOTE | 2016-12-06 19:21 | DRSVH ---
PROCEDURE: US PELVIC SONOGRAM, LIMITED INDICATIONS: eval endometrial contents TECHNIQUE: Real-time transabdominal scanning was performed of the pelvic organs, with image documentation. COMPARISON: None. FINDINGS: Uterus: Uterus is normal in size at 11.9 x 7.3 x 8.7 cm. Endometrium measures 37.5 mm in thickness. A lobulated soft tissue mass with increased vascularity is present within the endometrium. IMPRESSION: 1. Lobulated, hypervascular endometrial mass status post vaginal delivery on 11/15/16. These findings are consistent with retained products of conception. These results were discussed with Dr. Montes De Oca by the sifter and miller at 6:35 PM on 12/06/16. Dictated by: Karly Rojas M.D. on 12/06/2016 at 19:17 Approved by: Karly Rojas M.D. on 12/06/2016 at 19:19
[2016-12-06] MEDS ORDERED: METO10TA3 PO (19:30)
[2016-12-06] MEDS ORDERED: PREN-56 PO (19:32)
[2016-12-06] MEDS ORDERED: NPR500T PO (19:32)
[2016-12-06] MEDS ORDERED: NAPR375T2 PO (19:32)
[2016-12-06] MEDS ORDERED: ASPI-1148 PO (19:32)
[2016-12-06] MEDS ORDERED: 0.9% Sodium Chloride 250 ML ONE (21:16)
[2016-12-06] MEDS ORDERED: Lactated Ringer's 1,000 ML IV ONE ×2 (21:38→22:15)
[2016-12-06] MEDS ORDERED: Lactated Ringer's 1,000 ML IV SCH (22:02)
[2016-12-06] MEDS ORDERED: Lactated Ringer's 500 ML IV PRN (22:02)
--- NOTE | 2016-12-06 22:02 | PCM.HPANE ---
Patient Data Surgeon Admitting Provider:Ashley Bernal MD Attending Provider:Ashley Bernal MD Primary Care Physician:Idris Aburto MD Other Provider: Reason for Visit Post- Hemorrhage,Retained Products Of Concep Ht/WT & BMI Weight (Kilograms): 90.7 Body Mass Index Allergies Coded Allergies: amoxicillin (Verified Allergy, Severe, 12/06/16) FAIITNG, LOW BP, CHEST PAIN clindamycin (Verified Allergy, Severe, Anaphylaxis, 12/06/16) THROAT SWELLING ciprofloxacin (Verified Allergy, Intermediate, Nausea,Vomiting, 12/06/16) N/V, DIZZINESS, TWITCHING, PALPITATIONS, FLUSHING metronidazole (Verified Allergy, Unknown, 12/06/16) fluoxetine (Verified Adverse Reaction, Intermediate, 12/06/16) LIGHT HEADEDNESS Past Anesthesia History Anesthesia History: Denies:: Abnormal Airway, Anesthesia Reactions (no prior surgery), Difficult Intubation, Fam Anesthesia Reaction, Malignant Hyperthermia Diabetes History Hx Diabetes?: No MRSA MRSA: Yes (cannot recall specifics ) Medications Reported Medications Aspirin/Acetaminophen/Caffeine (Razfqly-Gqqfcanzgbtbp-Tger Tab)250 Mg-250 Mg-65 Mg Tablet1-2 Each PO QID PRN MIGRAINE 12/06/16 Naproxen 375 Mg [id number] Mg PO BID PRN For Pain Ref 0 12/06/16 Xln874/Iron Fumarate/FA/Dss ( 19 Tablet)1 Each Tablet1 Each PO DAILY 12/06/16 Metoclopramide 10 Mg Tablet5-10 Mg PO QID PRN Ref 0 12/06/16 Buspirone 15 Mg Eichey54 Mg PO 1-2X/DAY Ref 0 01/30/16 Albuterol HFA (Proair HFA)8.5 Gm Hfa.aer.ad2 Puffs INHALATION Q4H PRN For Shortness of Breath #1 INHALER 01/30/16 Acyclovir 400 Mg Qhirod903 Mg PO TID PRN HERPES OUTBREAK Ref 0 for 5 day cycle 01/30/16 Discontinued Reported Medications Naproxen 500 Mg Ddq288 Mg PO BID PRN For Pain Ref 0 12/06/16 Alprazolam (Xanax)0.5 Mg Tablet0.5-1 Mg PO TID PRN For Anxiety Ref 0 01/30/16 [vitamin d] No Conflict CheckUnknown Dose DAILY 01/30/16 Triamcinolone Acet (Triamcinolone Acetonide Cream)1 Applic/0.25 Gm Cr1 Applic EXT BID #60 GM Ref 0 01/30/16 Esomeprazole Magnesium (Nexium)20 Mg Capsule.dr20 Mg PO DAILY Ref 0 01/30/16 Methylphenidate 20 Mg Ppzudd87 Mg PO QAM Ref 0 01/30/16 Meclizine (Bonine)25 Mg Tab.chew25 Mg PO PRN vertigo 01/30/16 Magnesium Oxide (Magnesium)250 Mg Ugjlaa860 Mg PO DAILY 01/30/16 Ketoconazole 15 Gm Cream..g.15 Gm TP BID 01/30/16 Butalbital/Acetamin/Caff 50-300-40 mg (Fioricet 50-300-40 mg)1 Each Capsule1-2 Capsule PO Q4H PRN migraines Ref 0 NTE 6 caps/24 hrs 01/30/16 [excedrin migraine] No Conflict Qksgp093 Mg PRN migraines 01/30/16 Methamphetamine HCl (Desoxyn)5 Mg Tablet5-10 Mg PO 1-2x daily 01/30/16 Desonide (Desonide Cream)15 Gm Cream..g.1 Applic TOP BID #1 TUBE Ref 0 01/30/16 Cranberry Conc/Ascorbic Acid (Cranberry 6,000 mg Softgel)1 Each Capsule1 Each PO DAILY 01/30/16 Sod Lactate/Amm Lact/Pot Lact (Amlactin Ultra Body Cream)28 Gm Cream..g.28 Gm TP BID 01/30/16 Lactobacillus Acidophilus/Fos (Acidophilus Probiotic Tablet)500 Million Cell-50 Mg Tablet1 Each PO DAILY 01/30/16 History History of ENT Problems?: Yes HEENT History: Positive for:: Sinus Problem (sinus frequently) Denies:: Abnormal Airway Cataracts Difficult Intubation Dysphagia Hearing Problem TMJ Hx of Heart Problems?: Yes Cardiovascular History: Positive for:: Irregular Heartbeat (palpitations with anxiety, syncopal episodes) Denies:: AICD Abdominal Aortic Aneurism Atrial Fibrillation Cardiac Surgery Chest Pain Congestive Heart Failure Edema Heart Murmur Hypertension Pacemaker Hx of Respiratory Problem?: Yes Respiratory History: Positive for:: Asthma (exercise induced) Pneumonia ("thinks so") Denies:: Oxygen Administration Tuberculosis Use of C-PAP Machine Hx Neurologic Problems?: Yes Neurological History: Positive for:: Dizziness (vertigo- syncopal episodes easily in medical situations) Headaches Denies:: CVA Dementia Multiple Sclerosis Parkinson's Disease Seizures Hx of GI Problems?: No Gastrointestinal History: Denies:: Cirrhosis Diverticulitis Gastroesphageal Reflux Gastrointestinal Bleeding Heartburn Hepatitis Hiatal Hernia Rectal Bleeding Hx of Problems?: No Genitourinary History: Positive for:: Urinary Tract Infection Denies:: Kidney Stones HX of Peritoneal Dialysis: No Female Hx: Positive for:: Currently (missed current admission problem) Denies:: Problems with Breasts? Hx Musculoskeletal Problems?: No Musculoskeletal History: Denies:: Back Injury Degenerative Joint Joint Replacement Musculoskeletal Trauma Systemic Lupus Hx of Psycho/Social Problems?: Yes Psycho Social History: Positive for:: Anxiety Hx Depression Hx Surgeries?: No Other History: Denies:: Cancer Thyroid Disease History Blood Transfusions: Denies:: Blood Transfusions Hx Diabetes: No Hx Alcohol Use: YesHx Substance Use: No Smoking Status: Current Every Day Smoker Have You Smoked inLast 12 mo: Yes Stop/Bang Risk Assessment Category Category 1A: Patient has history of documented sleep apnea, and HAS NOT received any narcotic, sedative or anesthesia administration during this stay. Category 1B: Patient has history of documented sleep apnea, and HAS received any narcotic , sedative or anesthesia administration during this stay Category 2: Patient has SUSPECTED Obstructive Sleep Apnea, and HAS received any narcotic , sedative or anesthesia administration during this stay. Category 3: Patient has SUSPECTED Obstructive Sleep Apnea and HAS NOT received narcotic, sedative or anesthesia administration during this stay. Category 4: Outpatient in Procedural Areas with known sleep apnea or who screen positive for High Risk via the STOP/BANG questionnaire. Exam Exam Vital Signs Vital Signs Date Time Temp Pulse Resp B/P Pulse Ox O2 Delivery O2 Flow Rate FiO2 12/06/16 19:01 99 16 92/54 99 Room Air 12/06/16 17:38 36.5 97 16 100/59 100 Room Air 12/06/16 17:22 91 13 101/62 100 Room Air 12/06/16 16:30 36.8 96 15 100/64 100 Room Air General Appearance: Alert, Oriented X3, Cooperative, No Acute Distress HEENT/AIRWAY: MP 3 Lungs: Clear to Auscultation Heart: Exam Unremarkable Meds/Labs/Diagnostics Admission Meds Current Medications Doxycycline Hyclate/Dextrose/ Water (Vibramycin Inj/ D5W Minibag Plus) 100 ml @ 50 mls/hr ONCE ONCE IV Last administered on 12/06/16t 17:29; Start 12/06/16 at 16:55; Stop 12/06/16 at 18:54; Status DC Labs Test 12/06/16 16:36 12/06/16 16:50 12/06/16 18:44 White Blood Count 16.0th/mm3 (3.8-10.1) Red Blood Count 2.79mil/mm3 (3.90-5.20) Mean Corpuscular Volume 94.6fL (81-100) Mean Corpuscular Hemoglobin 30.1pg (27.0-35.0) Mean Corpuscular Hemoglobin Concent 31.8% (32.0-37.0) Red Cell Distribution Width 14.1% (12.3-15.4) Platelet Count 595bil/L (150-400) Neutrophils (%) (Auto) 71.1% (40-74) Lymphocytes (%) (Auto) 20.8% (14-46) Monocytes (%) (Auto) 6.7% (4-12) Eosinophils (%) (Auto) 0.5% (0-5) Basophils (%) (Auto) 0.2% (0-3) Hold Purple Top Tube Received (Received) Hold Blue Top Tube Received (Received) Sodium Level 135mEq/L (134-144) Potassium Level 3.9mEq/L (3.5-5.2) Chloride Level 98mEq/L (97-108) Carbon Dioxide Level 22mmol/L (18-29) Blood Urea Nitrogen 15mg/dL (6-20) Creatinine 0.69mg/dL (0.57-1.00) Estimat Glomerular Filtration Rate 138mL/min (>59) Glucose Level 107mg/dL (60-99) Calcium Level 8.6mg/dL (8.5-10.1) Total Bilirubin 0.2mg/dL (0.0-1.2) Aspartate Amino Transf (AST/SGOT) 17U/L (0-50) Alanine Aminotransferase (ALT/SGPT) 15U/L (0-32) Alkaline Phosphatase 100U/L (25-150) Total Protein 6.8g/dL (6.4-8.4) Albumin 3.7g/dL (3.4-5.0) Hold Red Top Tube Received (Received) Hold [place] Top Tube Received (Received) Lactic Acid Level 2.3mmol/L (0.4-2.0) Hemoglobin 6.4g/dL (12.0-15.6) Hematocrit 20.9% (35.0-46.0) Plan Impression Patient chart reviewed, patient interviewed and anesthestic plan with risks, benefits, and alternatives discussed, and informed consent obtained. ASA Physical Status: ASA3 Severe Disease (severe anemia) Anesthetic Plan: GA Bene/Risks/Altern/Consents: Yes HP Complete Prior to Induction: Yes Carter Nunes MD Dec 06, 2016 20:57
[2016-12-06] MEDS ORDERED: Dexamethasone 4 mg/mL Inj IVPUSH PRN (22:05)
[2016-12-06] MEDS ORDERED: Ondansetron 2 mg/mL 2 mL Inj IVPUSH PRN ×2 (22:05→22:30)
[2016-12-06] MEDS ORDERED: HYDROmorphone 1 mg/mL Inj IVPUSH PRN (22:05)
[2016-12-06] MEDS ORDERED: MetoCLOpramide 5 mg/mL 2 mL Inj IVPUSH PRN ×2 (22:05→22:30)
[2016-12-06] MEDS ORDERED: EPHEDrine Sulfate 50 mg/mL Inj IVPUSH PRN (22:05)
[2016-12-06] MEDS ORDERED: Phenylephrine 10,000 mCg/mL Inj IVPUSH PRN (22:05)
[2016-12-06] MEDS ORDERED: fentaNYL-PF 50 mCg/mL 2 mL Inj IVPUSH PRN (22:05)
[2016-12-06] MEDS ORDERED: diphenhydrAMINE 25 mg Capsule PO PRN (22:30)
--- NOTE | 2016-12-06 22:44 | PCM.ANEP1 ---
Post Anesthesia Phase 1 PACU Phase 1 Assessment Vital Signs Vital Signs Date Time Temp Pulse Resp B/P Pulse Ox O2 Delivery O2 Flow Rate FiO2 12/06/16 22:30 36.7 106 24 119/74 99 Simple Mask 8 12/06/16 21:41 92 20 96/65 100 Room Air 12/06/16 19:01 99 16 92/54 99 Room Air 12/06/16 17:38 36.5 97 16 100/59 100 Room Air 12/06/16 17:22 91 13 101/62 100 Room Air 12/06/16 16:30 36.8 96 15 100/64 100 Room Air Anesthetic Administered: GA Level of Alertness: Awake, talking PARKER's with Equal Strength: Yes Pain: Yes Nausea or Vomiting: No Oxygen Delivery: Room Air Lungs: Clear to Auscultation Dermatome Level: Full Sensation Carter Nunes MD Dec 06, 2016 22:44
--- NOTE | 2016-12-06 22:48 | PCM.ANEP2 ---
Post Anesthesia Evaluation ASA/CMS Post Anesthesia VS in Patient's Normal Range?: Yes Resp Stable; Airway Patent?: Yes CV Function & Hydration Stable: Yes Mental Status Recovered?: Yes Pain control Satisfactory?: Yes N/V Control Satisfactory?: Yes Carter Nunes MD Dec 06, 2016 22:48
[2016-12-07] MEDS: HYDROcodone-APAP 5-325 mg Tablet PO PRN ×3 (00:41→07:27)
[2016-12-07 01:00] VITALS: BP 105/69; PULSE 88; RESP 16
--- NOTE | 2016-12-07 01:23 | HP ---
[address] [address] HISTORY AND PHYSICAL PATIENT: MARIO TEJEDA : 1980 MR#: [id number] ADMIT: 12/06/2016 JOB ID: [id number] HISTORY OF PRESENT ILLNESS: This is a 26-year-old female. She is 1, para 1. She had vaginal delivery on November 15. She was delivered by Dr. Aburto and she had hemorrhage and chorioamnionitis. The EBL during and after the delivery was about 1 L. She had one episode of fever after delivery and she was diagnosed chorioamnionitis. She get one dosage of antibiotics after delivery of the baby. On day one, the patient declined for blood draw at noon, and at day one patient left against medical advice. Patient today she feels she had heavy bleeding and she had a near faint and called ambulance. She was brought to our emergency department and it was noticed she had heavy vaginal bleeding at the emergency department. At emergency department, her temperature was 36.5, her pulse was 96 at 04:30, and 99 at seven o'clock. Her respiratory rate was between 15 to 16. Her blood pressure at admission to emergency department was 108/64, at seven o'clock was 92/54. Her O2 sat was between 100 to 99 on room air. She had an ultrasound after she arrived to emergency department. The ultrasound showed the uterus is 11.9 x 7.3 x 8.7 cm. The endometrium measures 37.5 mm in thickness. A lobulated soft tissue mass with increased vascularity is present within the endometrium. It showed a lobulated hypervascular endometrial mass status post vaginal delivery and consistent with retained products of conception. After she was admitted, her WBC was 16, her H and H was 8.4 over 26.4. After fluid resuscitation, her H and H was 6.4 over 20.9. I was called by emergency department physician, Dr. Montes De Oca, at 7:20, and I went down immediately to talk with the patient. At that time, she had no abdominal pain. She declined fever at home. At that time, she was lying on bed, she could talk and understand without difficulty. ALLERGIES: She is allergic to: 1. AMOXICILLIN. 2. CLINDAMYCIN. 3. CIPRO. 4. METRONIDAZOLE. 5. FLUOXETINE. The reaction to AMOXICILLIN was fainting, low blood pressure, chest pain. For CLINDAMYCIN was throat swelling. For CIPRO was nausea, vomiting, dizziness, twitching, palpitation, flushing. To METRONIDAZOLE was unknown. To FLUOXETINE was lightheaded. PAST MEDICAL HISTORY: Including anxiety, chronic neck and back pain, hypersomnia, dissociative disorder. PAST SURGICAL HISTORY: Declined. OBSTETRICAL HISTORY: She had one vaginal delivery on November 15, 2016. SOCIAL HISTORY: She is a chronic smoker, currently every day. She declined alcohol abuse. Patient has history of amphetamine abuse. Her last urine drug screening was when she was at [facility] on November 16, was positive for amphetamines. PHYSICAL EXAMINATION: Her temperature is 36.5, pulse 99, respiratory rate 16, blood pressure 92/54. O2 sat 99. Cardiac: RR, no murmur. Pulmonary: Bilaterally clear. Her abdomen is soft. Extremities: Nontender. Pelvic examination: I did not do pelvic examination for this patient at the emergency department visit for the reason that this patient has anxiety, which I know her well from her history and her delivery history, and she does not have abdominal pain. No fever. Not tender on her abdomen. Although her white count is 16, then I could not exclude infection, but suction D and C will be a necessary procedure and she will be in the OR. I will do a pelvic examination under anesthesia before the procedure, which I believe will arise less anxiety for the patient. LABORATORIES: Her H and H was 6.4 over 20.9. Ultrasound as mentioned above. ASSESSMENT AND PLAN: A 36-year-old female, 1, para 1, three weeks after vaginal delivery, history of hemorrhage, had hemorrhage again with significant anemia after acute blood loss, likely due to retained products of conception. PLAN: 1. Before I came down to evaluate patient, I talked with the emergency department physician that the patient will need blood transfusion immediately. At this time, we are waiting for the blood to come in, and I still think it is necessary to get her blood before we move her to operating room for suction dilation and curettage. I do not need complete 2unis of PRBC but at least blood available. 2. Per emergency department doctor, she gave her a dose of antibiotics of doxycycline already. Patient has white count of 16, although she has no fever, no abdominal pain. She has history of chorio and there is possibility of endometritis too. I agree with antibiotics and I will continue with antibiotics after the procedure too. 3. I discussed with patient the necessity of suction D and C immediately. I talked with patient about the risk of infection, bleeding, injury to the uterus, perforation of the uterus, injury to the organs around the uterus. Informed consent signed. When I talked with the patient, her partner and her father are present in the room. 4. I called the nurse entertainment manager of the hospital. Discussed for emergency suction D and C. I talked directly with anesthesiologist, and he will come to see patient and will get the procedure done as soon as possible. 5. I will keep patient in house for monitor overnight. There is likelihood she could be discharged tomorrow when she is stable. Patient still requests Dr. Aburto, and I told her Dr. Aburto is not trade union official tonight. She requested that I informed Dr. Aburto that she is in hospital tomorrow morning. I told patient I will let Dr. Aburto know, but I can not guarantee that Dr. Aburto will have time to see her in hospital tomorrow because Dr. Aburto will not be trade union official tomorrow either. CARTER
--- NOTE | 2016-12-07 01:34 | NUR ---
Post op/admit pt arrived from PACU at 2320. she is alert and oriented x4, able to move all extremities. she moved herself from the gurney to the hospital bed. she has also walked to the bathroom to urinate SBA and steady on her feet. minimal amount of blood present on magaly pad. VSS and afebrile. she has been eating and drinking without nausea. second unit of PRBC was infusing when pt arrived from PACU it finished at 0100. repeat CBC ordered for 0600. pt has complained of cramping pain in her pelvis area that she rates a 5/10. she was given one 600mg motrin and one vicodin. she says the pain medication was effective and she is currently resting comfortably. care continues.
--- NOTE | 2016-12-07 01:47 | NUR ---
pt also had a liter of LR with 20mg of pitocin added that was hung in the PACU and finished here on the floor. pt was SL when the bag was complete.
--- NOTE | 2016-12-07 04:51 | OP ---
[address] [address] OPERATIVE REPORT PATIENT: MARIO TEJEDA : 1980 MR#: [id number] ADMIT: 12/06/2016 JOB ID: [id number] DATE OF SURGERY: PREOPERATIVE DIAGNOSIS(ES): Late hemorrhage likely due to retained products. POSTOPERATIVE DIAGNOSIS(ES): Late hemorrhage likely due to retained products. INDICATION FOR PROCEDURE: Late hemorrhage likely due to retained products. SURGEON: Ashley Bernal MD HISTORY: This is a 36-year-old female. She is 1, para 1, status post vaginal delivery three weeks ago, with hemorrhage. She was sent in by ambulance tonight for heavy vaginal bleeding, late hemorrhage. She was noticed to have heavy vaginal bleeding, and acute blood loss with severe anemia, H and H 6/20. The decision was made for emergency suction D and C. She got 1 unit of PRBCs before the procedure. After she was admitted to the ED, her vitals being stable, I discussed the patient about the necessity for emergency suction D and C. We discussed about the benefits, risks, and alternatives of the procedure. She understood there is risk of infection, bleeding, perforation of the uterus, injury to the organs around the uterus including but not limited to, the bladder, ureters, major vessels, nerves, and bowels. Informed consent signed. She got one dose of doxycycline before the procedure. DESCRIPTION OF PROCEDURE: The patient was transferred to the operating room. After anesthesia was noted to be adequate, she was placed in dorsal lithotomy position. She was prepared and draped as normal sterile fashion. A speculum inserted to vagina to expose the cervix. The cervix was grasped by a single-tooth tenaculum. At this time, the cervix was tried to dilate. A 10-Namibian dilator was inserted without any difficulty. Also, before the dilation of cervix, bimanual examination was performed under anesthesia. It is noticed the uterus is about 11 weeks size. At this time, a 10 mm suction tube was inserted to the uterine cavity. The pressure of suction was in the green zone and the products of was removed with suction tube. At this time, it was noted heavy bleeding. Pitocin was started and sharp curettage was inserted very carefully to feel the retained products. It was noticed there was still some tissue attached to the uterine fundus. Gentle sharp curettage was performed and the suction tube was re-inserted to remove the remnant of the tissue. After that, the sharp curettage had to be performed again, and still small tissue was noticed. Suction was done again. At this time, when sharp curettage was performed, it was noticed that there was no remnant left. During this process, one dose of Methergine was given. After the procedure was done, the vaginal bleeding was significantly decreased. All instruments were removed from the uterus. At this time, no active bleeding was seen. The estimated blood loss was about 300 cc. All of the products was sent for pathology. During the procedure, her vitals have been stable. PLAN: Will continue with another bag of Pitocin. We will give another unit of PRBCs. Will monitor her vaginal bleeding. We will repeat a CBC in the morning. The patient will stay in the hospital overnight. We will re-evaluate in the morning to decide whether she could be discharged tomorrow in the morning. I will give her another dose of doxycycline in the morning. If the patient is able to stay, planning to give the patient another five days of doxycycline, to be given by p.o. if the patient is discharged. The reason for the dose of antibiotics is because the patient was previously diagnosed with chorio and the bleeding may be related to retained placenta, may be related to endometritis. I will sign out to tomorrow's on-call doctor for further evaluation and management. CARTER
[2016-12-07] MEDS ORDERED: Doxycycline Inj 100 MG in Dextrose 5% Minibag Plus 100 ML IV ONE (06:00)
[2016-12-07 06:08] VITALS: BP 106/72; PULSE 79; RESP 20; O2SAT 96
[2016-12-07] MEDS ORDERED: 0.9% Sodium Chloride 250 ML ONE (06:29)
[2016-12-07 06:49] LABS: BASOPHILS % (AUTO) 0.1 % (0-3); EOSINOPHILS % (AUTO) 0 % (0-5); MONOCYTES % (AUTO) 1.2 % (4-12); Mean Corpuscular Hemoglobin 29.6 pg (27.0-35.0); Mean Corpuscular Volume 91.2 fL (81-100); NEUTROPHILS % (AUTO) 88.9 % (40-74); Platelet Count 419 bil/L (150-400)
--- NOTE | 2016-12-07 07:21 | PCM.DC.MED ---
Discharge Summary Date of Service Dec 07, 2016 Dates of Hospitalization Date of Hospital Admission Dec 06, 2016 at 20:23 Date of Discharge: Dec 07, 2016 Providers: Admitting Physician: Ashley Bernal MD Primary Care Physician: Idris Aburto MD Attending Physician: Ashley Bernal MD Diagnosis at Time of Discharge Diagnosis at Time of Discharge Late hemorrhage likely due to retained products, s/p D&C, present on admission, resolved Consultations Dr. Ashley Bernal, COMPUTER REPAIRER Procedures XRay, CTs & MRIs PROCEDURE: US PELVIC SONOGRAM, LIMITED INDICATIONS: eval endometrial contents TECHNIQUE: Real-time transabdominal scanning was performed of the pelvic organs, with image documentation. COMPARISON: None. FINDINGS: Uterus: Uterus is normal in size at 11.9 x 7.3 x 8.7 cm. Endometrium measures 37.5 mm in thickness. A lobulated soft tissue mass with increased vascularity is present within the endometrium. IMPRESSION: 1. Lobulated, hypervascular endometrial mass status post vaginal delivery on . These findings are consistent with retained products of conception. These results were discussed with Dr. Montes De Oca by the customer service security officer at 6:35 PM on . Dictated by: Karly Rojas M.D. on 12/06/2016 at 19:17 Approved by: Karly Rojas M.D. on 12/06/2016 at 19:19 Invasive Procedures D&C Brief History This is a 26-year-old female. She is 1, para 1. She had a vaginal delivery on November 15. She was delivered by Dr. Aburto and she had a normal vaginal delivery, but complicated with hemorrhage and chorioamnionitis. The EBL during and after the delivery was about 1 L. She had one episode of fever after delivery and she was diagnosed chorioamnionitis. She get one dosage of antibiotics after delivery of the baby. On day one, the patient declined for blood draw at noon, and at day one patient left against medical advice. Patient today she feels she had heavy bleeding and she had a near faint and called ambulance. She was brought to our emergency department and it was noticed she had heavy vaginal bleeding at the emergency department. At emergency department, her temperature was 36.5, her pulse was 96 at 04:30, and 99 at seven o'clock.Her respiratory rate was between 15 to 16. Her blood pressure at admission to emergency department was 108/64, at seven o'clock was 92/54. Her O2 sat was between 100 to 99 on room air. She had an ultrasound after she arrived to emergency department. The ultrasound showed the uterus is 11.9 x 7.3 x 8.7 cm. The endometrium measures 37.5 mm in thickness. A lobulated soft tissue mass with increased vascularity is present within the endometrium. It showed a lobulated hypervascular endometrial mass status post vaginal delivery and consistent with retained products of conception. After she was admitted, her WBC was 16, her H and H was 8.4 over 26.4. After fluid resuscitation, her H and H was 6.[address] Bernal was called by emergency department physician, Dr. Montes De Oca, at 7:20, and she saw the patient. At that time, she had no abdominal pain. She declined fever at home. At that time, she was lying on bed, she could talk and understand without difficulty. Hospital Course This is a 36-year-old female. She is 1, para 1, status post vaginal delivery three weeks ago, with hemorrhage. She was sent in by ambulance tonight for heavy vaginal bleeding, late hemorrhage. She was noticed to have heavy vaginal bleeding, and acute blood loss with severe anemia, H and H 6/20. The decision was made for emergency suction D&C. She got 1 unit of PRBCs before the procedure. After she was admitted to the ED, her vitals being stable. She got one dose of doxycycline before the procedure. The patient was transferred to the operating room on 12/07/2016. Pitocin was started and D&C performed by Mimi Bernal. After the procedure was done , the vaginal bleeding was significantly decreased. During the procedure, her vitals have been stable. After the procedure, she received another unit of PRBCs. Next morning her hemoglobin increased to 8.4 from 6.4. She received total of two doses of doxycycline IV during the hospital stay. She was discharged the next day in a stable condition on oral doxycycline d/t previously diagnosed with chorio and possible endometriosis. Exam Vital Signs (Last) Date Time Temp Pulse Resp B/P Pulse Ox O2 Delivery O2 Flow Rate FiO2 12/07/16 06:08 36.5 79 20 106/72 96 Room Air 12/06/16 23:24 3.00 Exam Alert and oriented x 3, cooperative, in ni acute distress RRR, S1, S2, no murmurs Lungs are clear to auscultation bilaterally Abdomen is soft, non-tender, normoactive bowel sounds Lower extremities with no edema Skin is warm without rashes Normal mood and affect Test 12/06/16 16:36 12/06/16 16:50 12/07/16 06:00 Hold Purple Top Tube Received (Received) Hold Blue Top Tube Received (Received) Sodium Level 135mEq/L (134-144) Potassium Level 3.9mEq/L (3.5-5.2) Chloride Level 98mEq/L (97-108) Carbon Dioxide Level 22mmol/L (18-29) Blood Urea Nitrogen 15mg/dL (6-20) Creatinine 0.69mg/dL (0.57-1.00) Estimat Glomerular Filtration Rate 138mL/min (>59) Glucose Level 107mg/dL (60-99) Calcium Level 8.6mg/dL (8.5-10.1) Total Bilirubin 0.2mg/dL (0.0-1.2) Aspartate Amino Transf (AST/SGOT) 17U/L (0-50) Alanine Aminotransferase (ALT/SGPT) 15U/L (0-32) Alkaline Phosphatase 100U/L (25-150) Total Protein 6.8g/dL (6.4-8.4) Albumin 3.7g/dL (3.4-5.0) Hold Red Top Tube Received (Received) Hold [place] Top Tube Received (Received) Lactic Acid Level 2.3mmol/L (0.4-2.0) White Blood Count 15.6th/mm3 (3.8-10.1) Red Blood Count 2.84mil/mm3 (3.90-5.20) Hemoglobin 8.4g/dL (12.0-15.6) Hematocrit 25.9% (35.0-46.0) Mean Corpuscular Volume 91.2fL (81-100) Mean Corpuscular Hemoglobin 29.6pg (27.0-35.0) Mean Corpuscular Hemoglobin Concent 32.4% (32.0-37.0) Red Cell Distribution Width 15.0% (12.3-15.4) Platelet Count 419bil/L (150-400) Neutrophils (%) (Auto) 88.9% (40-74) Lymphocytes (%) (Auto) 9.2% (14-46) Monocytes (%) (Auto) 1.2% (4-12) Eosinophils (%) (Auto) 0% (0-5) Basophils (%) (Auto) 0.1% (0-3) Discharge Medications Discharge Medications Buspirone (Buspirone) 15 Mg Tablet 15 MG PO 1-2X/DAY (Reported) Doxycycline Monohyd (Doxycycline Monohyd) 100 Mg Tablet 100 MG PO BID Prescribed by: KRISTIAN GARCIA DO Ferrous Sulfate (Ferrous Sulfate) 325 Mg Tablet.dr 325 MG PO DAILY Prescribed by: KRISTIAN GARCIA DO Fluconazole (Diflucan) 150 Mg Tablet 150 MG PO ONCE Prescribed by: KRISTIAN GARCIA DO Aja063/Iron Fumarate/FA/Dss ( 19 Tablet) 1 Each Tablet 1 EACH PO DAILY ( Reported) As needed Acyclovir (Acyclovir) 400 Mg Tablet 400 MG PO TID PRN PRN HERPES OUTBREAK ( Reported) for 5 day cycle Albuterol HFA (Proair HFA) 8.5 Gm Hfa.aer.ad 2 PUFFS INHALATION Q4H PRN PRN For Shortness of Breath (Reported) Aspirin/Acetaminophen/Caffeine (Rahxxgk-Jgkwzvzaucukp-Rwsn Tab) 250 Mg-250 Mg- 65 Mg Tablet 1-2 EACH PO QID PRN PRN MIGRAINE (Reported) Hydrocodone-Acetaminophen 5-325 mg (Hydrocodone-Acetaminophen 5-325 mg) 1 Each Tablet 1 TABLET PO Q4H PRN PRN For Pain Prescribed by: KRISTIAN GARCIA DO Ibuprofen (Ibuprofen) 600 Mg Tablet 600 MG PO QID PRN PRN For Pain Prescribed by: KRISTIAN GARCIA DO Metoclopramide (Metoclopramide) 10 Mg Tablet 5-10 MG PO QID PRN PRN ( Reported) Followup Plan Disposition: Home Discharge Diet: No restrictions Discharge Activity: No restrictions Follow-up Provider: Idris Aburto MD Follow-up with PCP in: 2 weeks Kristian Garcia DO Dec 07, 2016 07:21
[2016-12-07] MEDS ORDERED: DOXY-232 PO (08:24)
[2016-12-07] MEDS ORDERED: HYDR-4003 PO (08:25)
[2016-12-07] MEDS ORDERED: IBUP-1827 PO (08:26)
[2016-12-07] MEDS ORDERED: FERR325T6 PO (08:27)
[2016-12-07] MEDS ORDERED: FLUC150T48 PO (08:30)
--- NOTE | 2016-12-07 08:31 | PCM.DIMED ---
Discharge Instructions Date of Service Dec 07, 2016 Dates of Hospitalization Dec 06, 2016 at 20:23 Discharge Diagnosis Discharge Diagnosis Late hemorrhage likely due to retained products, s/p D&C, present on admission, resolved Diet No restrictions Activity No restrictions Call your provider Fever or Chills, Shortness of breath, Bleeding, Chest pain, Vomitting, Excessive diarrhea, Weakness (unilateral) Patient Instructions Follow-up Provider: Idris Aburto MD Follow-up with PCP in: 2 weeks Shefali Myles DO Dec 07, 2016 08:31
--- NOTE | 2016-12-07 09:12 | NUR ---
Social Work- Initial Assessment and Discharge Data: See Initial Assessment. Pt is a 36 year old female admitted 12/06/16 for post- hemorrhage per H&P. SW spoke with pt as she was completing an early am discharge. Pt's insurance is [employer] and [employer]. Pt's PCP is Idris Aburto MD. DESIREE spoke with pt and spouse briefly at bedside. Pt resides in [place] with her spouse where she remains independent at base. Pt uses no DME, drives. Pt has no HH or SNF history. Pt has no LTC or VA benefits. Pt has no DPOA, pt encouraged to complete this. Pt to discharge home with to transport via POV. No discharge needs. Assessment: Pt who is independent at base. Plan: Pt to discharge home with spouse to transport via POV. No discharge needs. ASHLEY Conteh Addendum: 12/07/16 at 0915 by CAMELIA VALDERRAMA Amended: Links added.
[2016-12-07] MEDS ORDERED: Methylergonovine 0.2 mg/mL Inj IM ONE (09:15)
[2016-12-07] MEDS ORDERED: Carboprost 250 mCg/mL Inj IM ONE (09:15)
--- NOTE | 2016-12-07 11:30 | NUR ---
Discharge Pt discharged at 0915 with friend, walking to appt at [facility] with Dr. Aburto. Pt has discharge instructions, care notes and rx's. Pt ELENA, SVETLANA, A&O x 3. Set up pt to breast pump once before discharge since she had not pumped all night and put bottle of milk on ice for pt to take with her. Peripad in place and previous pad had scant blood. Pt has all belongings and all questions answered. 2 IV's removed intact.
--- NOTE | 2016-12-09 16:09 | PATH ---
SURGICAL PATHOLOGY Attending Physician:Ashley Bernal MD CASE STATUS: Signed Out PATIENT NAME: MARIO TEJEDA PID: [id number] : 1980 DATE COLLECTED:12/06/2016 00:00 SPECIMEN: Products of conception CLINICAL HISTORY: POST HEMORRHAGE 1. PRODUCT OF FINAL DIAGNOSIS: 1.PRODUCT OF : FRAGMENTS OF MATURE PLACENTA AND DECIDUA WITH AREAS OF INFLAMMATION, NECROSIS AND HEMORRHAGE. NO EVIDENCE OF MALIGNANCY. ICD10 CODE O72.2 GROSS DESCRIPTION: The specimen is received in formalin, labeled with the patient's name, sublabeled as and consists of products of , and consists of multiple fragments of lucas hemorrhagic spongy tissue (10.5 x 4.7 x 1.8 cm in aggregate). No parts are identified. Section code: (A-D) tissue, financial services representative. 12/08/16 JM MICRO DESCRIPTION: See diagnosis. ICD-9 CODES: CPT CODES: 1: 43625 Electronically Signed Out Ashley De La Fuente MD [facility] [address], [place] [address] Technical component performed at [facility], [address] [place] [address] Ave[address], [place], [address]
== END 2016-12-07 09:16 | disposition home or self-care (01) ==
LOC: SED 16:29 → OSC 20:23
PROVIDERS: ADMIT Obstetrics & Gynecology; ATTEND Obstetrics & Gynecology
DX: O72.2 Delayed and secondary postpartum hemorrhage (principal)
CPT/HCPCS: 36415; 36430; 59160; 76857; 80053; 83605; 85014; 85018; 85025; 86922; 87040; 88305; 94799; 96361; 96374; 99291; G0378; J0330; J1100; J1170; J2210; J2250; J2370; J2405; J2590; J2765; J3010; J7050; J7120; P9021